=== PATIENT | male | born 1995 | race Caucasian/White ===

== ENCOUNTER 2018-11-09 18:33 | Emergency (ER) | payer OTHER ==
[~2018-11-09] VITALS: Ht 167.6 cm; Wt 70.5 kg
[2018-11-09 18:33] VITALS: BP 126/73
--- NOTE | 2018-11-10 02:25 | REP ---
Clinical: Pain. Technique: AP and axial views of the left clavicle. Findings: No acute fracture or dislocation. Sternoclavicular joint and acromioclavicular joint appear relatively normal. Surrounding soft tissues are unremarkable. Impression: No obvious acute clavicle injury. Electronically Signed by Harlan Mesa MD 11/10/2018 02:17 A
== END 2018-11-09 21:25 | disposition home or self-care (01) ==
LOC: M ED 18:33
DX: M25.512 Pain in left shoulder (principal); Z53.20 Procedure and treatment not carried out because of patient's decision for unspecified reasons